=== PATIENT | male | born 1975 | race Caucasian/White ===

== ENCOUNTER 2018-11-22 22:16 | Emergency (ER) | payer SELFPAY ==
[~2018-11-22] VITALS: Ht 172.7 cm; Wt 87.1 kg
[2018-11-22 23:04] LABS: BASOPHIL % 0.8 % (0-2); PLATELET COUNT 209 x10^3mcL (130-400); RED CELL DISTRIBUTION WIDTH 12.4 % (11.5-14.5)
[2018-11-23 00:05] VITALS: BP 127/88
== END 2018-11-23 00:05 | disposition home or self-care (01) ==
LOC: ED 22:16
PROVIDERS: Emergency Medicine
DX: K64.8 Other hemorrhoids (principal)
CPT/HCPCS: 36415

== ENCOUNTER 2019-09-24 02:32 | Emergency (ER) | payer SELFPAY ==
[~2019-09-24] VITALS: Ht 175.3 cm; Wt 81.6 kg
[2019-09-24 03:38] VITALS: Ht 175.3 cm; Wt 81.6 kg
== END 2019-09-24 05:42 | disposition home or self-care (01) ==
LOC: ED 02:32
DX: S00.83XA Contusion of other part of head, initial encounter (principal); S40.811A Abrasion of right upper arm, initial encounter; Y04.0XXA Assault by unarmed brawl or fight, initial encounter; Y93.89 Activity, other specified; Y92.89 Other specified places as the place of occurrence of the external cause; Y99.8 Other external cause status
CPT/HCPCS: 90715; J1885